=== PATIENT | male | born 1955 | race Caucasian/White ===

== ENCOUNTER → 2016-11-29 | Outpatient (CLI) | payer BC ==
[~2016-11-29] MED LIST: GADOBUTROL 10 MMOL/10 ML VIAL ONE
== END | disposition home or self-care (01) ==
LOC: CFH 10:57
PROVIDERS: ATTEND Radiology Radiation Oncology
DX: D35.2 Benign neoplasm of pituitary gland (principal); I97.821 Postprocedural cerebrovascular infarction following other surgery
CPT/HCPCS: 70553; A9585

== ENCOUNTER → 2017-01-10 | Outpatient (CLI) | payer BC | END | disposition home or self-care (01) | LOC: ROC 15:18 | PROVIDERS: ATTEND Radiology Radiation Oncology | DX: D35.2 Benign neoplasm of pituitary gland (principal); Z98.890 Other specified postprocedural states | CPT/HCPCS: 99213; G0463 ==

== ENCOUNTER 2020-02-16 08:42 | Outpatient (CLI) | payer BC | END 2020-02-16 23:59 | disposition home or self-care (01) | LOC: ROC 08:42 | PROVIDERS: ATTEND Radiology Radiation Oncology | DX: Z08 Encounter for follow-up examination after completed treatment for malignant neoplasm (principal); D35.2 Benign neoplasm of pituitary gland | CPT/HCPCS: 99213; G0463 ==